=== PATIENT | male | born 2000 | race Caucasian/White ===

== ENCOUNTER 2020-08-12 14:03 | Emergency (ER) | payer OTHER, SELFPAY ==
[2020-08-12 22:33] LABS: SARS-CoV-2 MS2 Positive; SARS-CoV-2 N Gene Negative; SARS-CoV-2 S Gene Negative; SARS-CoV-2 by NAA Not Detected (NotDetected); SARS-CoV-2 orf1ab Negative
== END 2020-08-12 14:52 | disposition home or self-care (01) ==
LOC: ERS 14:03
DX: J02.9 Acute pharyngitis, unspecified (principal); Z20.828 Contact with and (suspected) exposure to other viral communicable diseases
CPT/HCPCS: 87635; 99283; U0003